=== PATIENT | male | born 1940 | race Hispanic/Latino ===

== ENCOUNTER 2018-07-19 06:51 | Inpatient (IN) | payer BC, MEDICARE ==
[2018-07-19 07:00] VITALS: BMI 33.0
--- NOTE | 2018-07-19 07:44 | ED PDOC ---
Arrival/HPI - History of Present Illness Narrative History of Present Illness (Text): 07/19/18 07:31 Pt is a 77 yo M with pmhx of HTN, HLD, hypothyroidism, CAD s/p stent, Ascending aortic aneurysm s/p repair, MVR s/p repair, s/p replacement who presents for chest pain. He states that his chest pain started yesterday afternoon at work and it was not too troublesome. He states that the chest pain was not initially worsened with exertion., and he took 3 advil before going to sleep. This AM at 4 he woke up with chest pain that worsened with deep inspiration, and had difficulty breathing 2/2 the chest pain. He states that now in the ED the chest pain is improving, and if he doesnt take a deep breath or lay flat the chest pain is not there. He states that the chest pain was a 8/10 and it was diffusely present through out his chest and wrapped around his back. He currently is denying any fevers, chills, light headedness, weakness, diaphoresis, coughing, wheezing, palpitations, pedal edema, nausea, vomiting, or abdominal pain. He does admit to pleuritic chest pain and SOB. PMHx: HTN, HLD, hypothyroidism, CAD s/p stent, Ascending aortic aneurysm s/p repair, MVR s/p repair, s/p replacement PSHx: thyroidectomy, Ascending aortic aneurysm s/p repair, MVR s/p repair, s/p replacement Meds: All: NKDA Social: Quit smoking 40 years ago, drinks a glass of bourbon daily - last drink was yesterday PM, denies illicit drug use Fam Hx: Dad - multiple ca. Mom- Breast ca w/ mets to bone PMD: Dr. Dick Aguilera Cardio: Dr. Connell <Chan Bates - Last Filed: 07/19/18 11:31> <Mayur Newberry - Last Filed: 07/19/18 11:33> - General Chief Complaint: Chest Pain Time Seen by Provider: 07/19/18 06:58 Past Medical History - Cardiac Hx Cardiac Disorders: Yes Hx Hypertension: Yes - Psychiatric Hx Substance Use: No - Surgical History Hx Cardiac Catheterization: Yes Hx Coronary Stent: Yes - Anesthesia Hx Anesthesia: Yes Hx Anesthesia Reactions: No Hx Malignant Hyperthermia: No <Chan Bates - Last Filed: 07/19/18 11:31> Family/Social History Family/Social History: Neoplasm/Cancer Smoking Status: Former Smoker Hx Alcohol Use: Yes Hx Substance Use: No <Chan Bates - Last Filed: 07/19/18 11:31> Allergies/Home Meds <Chan Bates - Last Filed: 07/19/18 11:31> <Mayur Newberry - Last Filed: 07/19/18 11:33> Allergies/Adverse Reactions: Allergies No Known Allergies Allergy (Verified 10/07/16 14:45) Home Medications: Home Meds Medication Instructions Recorded Confirmed Alprazolam [Xanax] 0.5 mg PO BID 10/07/16 07/19/18 Levothyroxine Sodium [Unithroid] 150 mcg PO DAILY 10/07/16 07/19/18 Metoprolol Tartrate [Lopressor] 50 mg PO BID 10/07/16 07/19/18 RX: Aspirin [[place] Aspirin] 81 mg PO DAILY 10/07/16 07/19/18 Ranitidine HCl [Acid Aircraft Worker 150] 150 mg PO DAILY 10/07/16 07/19/18 Atorvastatin [Lipitor] 10 mg PO DAILY 07/19/18 07/19/18 RX: Bupropion HCl [Bupropion HCl 150 mg PO DAILY 07/19/18 07/19/18 Sr] RX: Lisinopril [Zestril] 20 mg PO BID 07/19/18 07/19/18 RX: Nitroglycerin [Nitrostat] 0.4 mg TD PRN PRN 07/19/18 07/19/18 RX: Sertraline HCl [Zoloft] 25 mg PO TID 07/19/18 07/19/18 Review of Systems - Physician Review All systems were reviewed & negative as marked: Yes - Review of Systems Constitutional: absent: Fevers Respiratory: SOB. absent: Cough, Wheezing Cardiovascular: Chest Pain (diffusely present in the chest, wrapping around to back). absent: Palpitations, Edema, Syncope <Chan Bates - Last Filed: 07/19/18 11:31> Physical Exam Vital Signs Temp Pulse Resp BP Pulse Ox 07/19/18 07:15 98.1 F 72 16 129/73 93 L Temperature: Afebrile Blood Pressure: Normal Pulse: Regular Respiratory Rate: Normal Appearance: Positive for: Non-Toxic, Uncomfortable Pain Distress: Mild Mental Status: Positive for: Alert and Oriented X 3 - Systems Exam Head: Present: Atraumatic, Normocephalic Pupils: Present: PERRL Extroacular Muscles: Present: EOMI Respiratory/Chest: Present: Decreased Breath Sounds, Rales (present b/l worse on R than L). No: Good Air Exchange, Respiratory Distress, Accessory Muscle Use, Wheezes Cardiovascular: Present: Regular Rate and Rhythm, Murmurs (murmur present on the R sternal border likely 2/2 s/p replacement ). No: Irregular Rhythm, Tachycardic, Rub, Gallop Abdomen: Present: Normal Bowel Sounds. No: Tenderness, Distention, Peritoneal Signs, Rebound, Guarding Lower Extremity: Present: Normal Inspection, NORMAL PULSES. No: Edema, CALF TENDERNESS Neurological: Present: GCS=15, Speech Normal Skin: Present: Warm, Dry, Normal Color. No: Rashes Psychiatric: Present: Alert, Oriented x 3, Normal Insight, Normal Concentration <Chan Bates - Last Filed: 07/19/18 11:31> Vital Signs Temp Pulse Resp BP Pulse Ox 07/19/18 07:15 98.1 F 72 16 129/73 93 L <Mayur Newberry - Last Filed: 07/19/18 11:33> Medical Decision Making ED Course and Treatment: 07/19/18 07:48 Pt is a 77 yo M with pmhx detailed above who presented for chest pain, worse with inspiration that wrapped around the back. - CBC - CMP - BNP - VBG - CXR - D-Dimer - EKG - Trops - s/l nitro 07/19/18 09:40 Progress Note: Pt was re-assessed at bedside. He states that his chest pain is improving after the nitrates. 07/19/18 10:32 Progress Note: CT report was read and acknowledged. Pt was informed of reading about b/l PEs and heparin under the PE protocol was ordered. Pt will be placed in ICU for monitoring. - RAD Interpretation Radiology Orders: 07/19/18 07:22 CHEST PORTABLE [RAD] Stat - Medication Orders Current Medication Orders: Nitroglycerin (Nitrostat Sl Tab) 0.4 mg SL STAT STA Stop: 07/19/18 07:23 <Chan Bates - Last Filed: 07/19/18 11:31> ED Course and Treatment: 07/19/18 08:14 Carlos Nation is a 77 year old male who presents to the emergency department with a complaint of chest pain. In agreement with resident note, which includes further HPI details. Patient was seen and evaluated with resident, came up with plan and treatment together. 07/19/18 08:17 Seen and examined with the resident. Our history and physical exam reveals a gentleman complaining of chest pain and shortness of breath since yesterday. Known coronary artery disease with mitral valve repair and aortic valve replacement. Stents approximately 7 years ago. He has some mild rales on both bases. 07/19/18 10:59 Case discussed in detail with Dr. Tate, Dr. Jon, and Dr. Nirmala Aguilera. Dr. Aguilera accepts patient to his service. 07/19/18 11:24 EKG shows normal sinus rhythm rate approximately 70 with poor R waves and Q waves inferiorly and no acute ST or T-wave changes - Lab Interpretations Lab Results: 07/19/18 07:45 Lab Results 07/19/18 07:45: pO2 41, VBG pH 7.38, VBG pCO2 44.0, VBG HCO3 26.0, VBG Total CO2 27.4, VBG O2 Sat (Calc) 80.0 H, VBG Base Excess 0.5, VBG Potassium 6.2 H*, Sodium 134.0, Chloride 107.0, Glucose 100, Lactate 1.0, FiO2 21.0, Venous Blood Potassium 6.2 H* 07/19/18 07:45: PT 11.0, INR 0.96, APTT 31.4, D-Dimer, Quantitative Pending 07/19/18 07:45: WBC 8.1, RBC 4.21, Hgb 14.0, Hct 42.5, MCV 101.0, MCH 33.3, MCHC 32.9, RDW 12.7, Plt Count 141, MPV 11.1 H, Gran % 79.9 H, Lymph % (Auto) 8.5 L, [place] % (Auto) 9.9 H, Eos % (Auto) 1.5, Baso % (Auto) 0.2, Gran # 6.47, Lymph # (Auto) 0.7 L, [place] # (Auto) 0.8 H, Eos # (Auto) 0.1, Baso # (Auto) 0.02 - RAD Interpretation Radiology Orders: 07/19/18 07:22 CHEST PORTABLE [RAD] Stat - Medication Orders Current Medication Orders: Discontinued Medications Nitroglycerin (Nitrostat Sl Tab) 0.4 mg SL STAT STA Stop: 07/19/18 07:23 Last Admin: 07/19/18 07:37 Dose: 0.4 mg <Mayur Newberry - Last Filed: 07/19/18 11:33> - Scribe Statement The provider has reviewed the documentation as recorded by the Vicenteibannie Herrera Provider Scribe Attestation: All medical record entries made by the Scribe were at my direction and personally dictated by me. I have reviewed the chart and agree that the record accurately reflects my personal performance of the history, physical exam, medical decision making, and the department course for this patient. I have also personally directed, reviewed, and agree with the discharge instructions and disposition. <Mayur Newberry - Last Filed: 07/19/18 11:33> Disposition/Present on Arrival - Present on Arrival History of DVT/PE: No History of Uncontrolled Diabetes: No Urinary Catheter: No History of Decub. Ulcer: No History Surgical Site Infection Following: None <Chan Bates - Last Filed: 07/19/18 11:31> - Present on Arrival Any Indicators Present on Arrival: No History of DVT/PE: No History of Uncontrolled Diabetes: No Urinary Catheter: No History of Decub. Ulcer: No - Disposition Have Diagnosis and Disposition been Completed?: Yes Disposition Time: 10:20 Patient Plan: Admission, ICU <Mayur Newberry - Last Filed: 07/19/18 11:33> - Disposition Diagnosis: Pulmonary embolus Disposition: HOSPITALIZED Patient Problems: Current Active Problems Problem Status Onset Pulmonary embolus Acute Condition: SERIOUS Referrals: Kodi Aguilera MD [Primary Care Provider] - Follow up with primary Forms: [employer] ([place])
[2018-07-19 08:02] LABS: BASO # 0.02 K/mm3 (0.0-2.0); BASO % 0.2 % (0.0-3.0); EOS # 0.1 (0.0-0.7); EOS % 1.5 % (1.5-5.0); GRAN # 6.47 (1.4-6.5); GRAN % 79.9 % (50.0-68.0); LYMPH # 0.7 (1.2-3.4); LYMPH % 8.5 % (22.0-35.0); MEAN CORPUSCULAR HEMOGLOBIN 33.3 pg (25.0-35.0); MEAN CORPUSCULAR HGB CONC 32.9 g/dl (31.0-37.0); MEAN PLATELET VOLUME 11.1 fl (7.0-11.0); MONO # 0.8 (0.1-0.6); MONO % 9.9 % (1.0-6.0); RBC 4.21 10^6/uL (3.5-6.1); RED CELL DISTRIBUTION WIDTH 12.7 % (11.5-14.5); WHITE BLOOD COUNT 8.1 10^3/ul (4.5-11.0)
[2018-07-19 08:07] LABS: INR 0.96; PARTIAL THROMBOPLASTIN TIME 31.4 Seconds (25.1-36.5)
[2018-07-19 08:09] LABS: VENOUS BLOOD GAS BASE EXCESS 0.5 mmol/L (0.0-2.0); VENOUS BLOOD GAS PO2 41 mm/Hg (30-55); VENOUS BLOOD PH 7.38 (7.32-7.43)
[2018-07-19 08:40] LABS: ALB/GLOB RATIO 1.2 (1.1-1.8); ALBUMIN 3.6 g/dL (3.0-4.8); ALT/SGPT 21 U/L (7-56); AST/SGOT 19 U/L (17-59); BLOOD UREA NITROGEN 17 mg/dL (7-21); CALCIUM 9.5 mg/dL (8.4-10.5); GFR NON-AFRICAN AMERICAN > 60
[2018-07-19 08:51] LABS: B-TYPE NATRIURETIC PEPTIDE 724 pg/mL (0-450); TROPONIN I < 0.01 ng/mL
[2018-07-19] MEDS ORDERED: Iohexol 350 MG/100 ML VIAL ONE (09:06)
--- NOTE | 2018-07-19 10:23 | CT ---
Date of service: 07/19/2018 PROCEDURE: CT Chest with contrast (Pulmonary Angiogram) HISTORY: SOB and elevated D dimer COMPARISON: None available. TECHNIQUE: Axial computed tomography images were obtained of the chest in the pulmonary arterial phase of enhancement. Coronal and sagittal reformatted images were created and reviewed. Intravenous contrast dose: Mean Hounsfield value in the main pulmonary artery: 269.50 Radiation dose: Total exam DLP = mGy-cm. This CT exam was performed using one or more of the following dose reduction techniques: Automated exposure control, adjustment of the mA and/or kV according to patient size, and/or use of iterative reconstruction technique. FINDINGS: PULMONARY ARTERIES: Dilated main pulmonary artery 4.0 cm consistent with pulmonary arterial hypertension. Pulmonary emboli identified including proximal and segmental branches of right lower lobe pulmonary arteries. Additional thrombus visible in left upper lobe pulmonary arteries. AORTA: No acute findings. No thoracic aortic aneurysm. LUNGS: Atelectatic changes at the lung bases. PLEURAL SPACES: Trace bilateral pleural effusions. HEART: Unremarkable. No cardiomegaly. No significant pericardial effusion. LYMPH NODES: No lymphadenopathy. BONES, CHEST WALL: Unremarkable. No fracture or destructive lesion OTHER FINDINGS: Enlargement of the left lobe of the thyroid extending into the superior mediastinum. Elective thyroid ultrasound recommended. IMPRESSION: Pulmonary embolism, acute primarily affecting right lower lobe. Additional thrombi identified subsegmental branches of the left upper lobe. Lower lobe infiltrates and trace pleural effusions. No visible evidence of pulmonary infarction. Additional benign and/or incidental findings described above. Critical values protocol: Study completed 09:22 Radiologist notified 10:08 Results conveyed verbally at 10:18. I discussed findings directly with the attending physician in the emergency department Dr. Eatsman. Interpretation finalized and available for review 10:July 19, 2018.
[2018-07-19] MEDS: Heparin25000 units/250ml 1/2NS 25,000 UNITS/250 ML BAG IV PRN (10:46)
[2018-07-19] MEDS ORDERED: Albuterol-Ipratrop 3 mg / 0.5 (3 ml) UD IH PRN (13:16)
--- NOTE | 2018-07-19 13:34 | RAD ---
Date of service: 07/19/2018 HISTORY: Chest pain. COMPARISON: July 19, 2018. CT pulmonary angiogram. FINDINGS: LUNGS: Low lung volumes, lower lobe infiltrates. PLEURA: No significant pleural effusion identified, no pneumothorax apparent. CARDIOVASCULAR: Cardiomegaly. No evidence of acute, significant cardiovascular disease. OSSEOUS STRUCTURES: No significant abnormalities. VISUALIZED UPPER ABDOMEN: Normal. OTHER FINDINGS: None. IMPRESSION: Atelectasis/infiltrates at the lung bases, findings better seen on CT pulmonary angiogram concurrent with this study.
[2018-07-19] MEDS: cefTRIAXone 1 gm 1 GM/100 ML BAG IVPB SCH (14:12)
--- NOTE | 2018-07-19 14:23 | HP ---
HISTORY OF PRESENT ILLNESS: The patient is a 77-year-old male who presents to the emergency room after experiencing chest pain yesterday and episode of chest pain through the night. He also has difficulty breathing. He says the chest pain gets worse with taking a deep breath. The pain radiated around the chest to the back. He denies any fever, chills, shakes. Onset was rather sudden while at work yesterday. PAST MEDICAL HISTORY: The patient is known to have a past medical history positive for hypertension, hypothyroidism, coronary artery disease status post stent placement and status post repair of an ascending aortic aneurysm, mitral regurg and aortic stenosis. The patient is status post thyroidectomy. ALLERGIES: HE HAS NO KNOWN MEDICAL ALLERGIES. SOCIAL HISTORY: He has not smoked for 40 years. Drinks one glass of Riley a day. MEDICATIONS: Include alprazolam 0.5 mg twice a day, aspirin 81 mg once a day, Synthroid 150 mcg daily, metoprolol tartrate 50 mg twice a day, ranitidine 150 mg daily, Lipitor 10 mg daily, bupropion 150 mg daily, lisinopril 20 mg twice a day, Nitrostat 0.4 mg as needed and Zoloft 25 mg three times a day. REVIEW OF SYSTEMS: Otherwise negative. PHYSICAL EXAMINATION: VITAL SIGNS: His blood pressure is 129/73, heart rate is 72. He is afebrile at 98.1 degrees Fahrenheit. LUNGS: On pulmonary auscultation, his lung sounds are decreased. There are bilateral rales at the bases noted. HEART: Regular. There is systolic murmur appreciated. ABDOMEN: Soft and nontender. EXTREMITIES: Free of cyanosis, clubbing or edema. NEUROLOGICAL: The patient is awake, alert and oriented with no focal neurological signs. LABORATORY DATA AND IMAGING: Shows a white blood cell count to be 8.1, hemoglobin and hematocrit are 14 and 42.5 respectively, platelet count is 141. The chest x-ray was performed. The patient underwent CT angio of the chest which showed pulmonary embolism acute primary affecting the right lower lobe. Additional thrombi were identified. Subsegmental branches of the left upper lobe. There were some lower lobe infiltrates and trace pleural effusions. So, the patient is admitted to the Intensive Care Unit with bilateral pulmonary emboli. He was started on heparin. The patient will be evaluated closely. Consultation from the primer powder blender wet, Dr. Tate is requested. Markell Aguilera MD [facility] # [id number]
[2018-07-19] MEDS ORDERED: Pneumococcal 23-Valent Vaccine IM ONE (15:41)
[2018-07-19] MEDS ORDERED: Influenza Vaccine 60 mcg/0.5 mL SYR (4YR UP) IM ONE (15:41)
--- NOTE | 2018-07-19 16:21 | CON ---
DATE: 07/19/2018 [facility] CONSULT LOCATION: At [facility]. REQUESTING PHYSICIAN: Kodi Aguilera MD. CHIEF COMPLAINT: The patient presents with chest pain and shortness of breath. HISTORY OF PRESENT ILLNESS: Mr. Nation, he is a 77-year-old male with a history of hypertension; hyperlipidemia; hypothyroidism; coronary artery disease, status post stent; ascending aortic aneurysm repair and mitral valve repair and aortic stenosis valve replacement. 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 The patient states that this morning, he developed chest pain that increased on exertion. He stated that he had taken several Advil before going to sleep but was wakened last night with chest pain and shortness of breath. He had no fever, chills. No nausea or vomiting. No abdominal pain. No cough or congestion. The patient has been admitted to the intensive care unit and is on IV heparin at this time for pulmonary embolus. PAST MEDICAL HISTORY: Significant for the coronary artery disease and stent, the mitral valve as well as the aortic valve surgery and the ascending aortic aneurysm repair. The patient has hypothyroidism and a goiter as well as hypertension. ALLERGIES: HE HAS NO KNOWN ALLERGIES. MEDICATIONS: His current medications can be evaluated as per the nurse's intake form. SOCIAL HISTORY: He is a smoker that stopped about 40 years ago. Does have social drinking, but no illicit drug use. FAMILY HISTORY: Noncontributory. REVIEW OF SYSTEMS: Note that constitutional all negative. HEENT: All negative. Respiratory: The patient presented with some shortness of breath. Cardiovascular: He had the chest pain. Gastrointestinal: All negative. : All negative. Musculoskeletal: All negative. Neuropsychiatric: All negative. Hematologic: All negative. Immunologic: All negative. Integrity: All negative. PHYSICAL EXAMINATION: VITAL SIGNS: Physical exam note that his temperature is 98.1, his pulse is 72, respirations of 16 and BP is 129/73. SKIN: Warm and dry. HEENT: Head atraumatic, normocephalic. Eyes reactive to light. Ears, nose and throat seemed to be within normal limits. NECK: Supple. No JVD. No thyroid enlargement. No lymph nodes. HEART: Has a regular rate and rhythm. Normal S1 and S2. LUNGS: Reveal good breath sounds apically, but there are some decreased breath sounds at the bases. ABDOMEN: Soft, nontender, decreased bowel sounds. GENITALIA AND RECTAL: Deferred. MUSCULOSKELETAL: No joint deformities. EXTREMITIES: Reveal no significant edema. NEUROLOGICAL: He is grossly intact. LABORATORY DATA: As far as his laboratories, his white count is 8.1, hemoglobin is 14, hematocrit 42.5 with platelets of 141,000. Venous blood gas reveals a pH of 7.38, pCO2 of 44, pO2 of 41. His sodium is 137, potassium 4.4, chloride 107, CO2 of 23 with a BUN of 17, creatinine of 1 and a glucose of 104. As far as his CT scan of the chest, it reveals that there was a pulmonary embolus, acute primary affecting the right lower lobe. Additional thrombi identified with subsegmental branches in the left upper lobe. There is a lower lobe infiltrate and trace pleural effusions. No evidence of pulmonary infarct. IMPRESSION: As far as my impression, this patient has pulmonary embolus in the right lower lobe and the left upper lobe. He also has lower lobe infiltrates and pleural effusions. Must rule out pneumonia. The patient has history of ascending aortic aneurysm and repair. He has mitral valve as well as aortic valve surgery in the past as well. He has a history of coronary artery disease with stents, hypothyroidism and had history of thyroid cancer and thyroidectomy approximately 20 years ago. It is noted on the CAT scan that there is an enlargement of the left lobe of the thyroid extending into the superior mediastinum. The patient has a history of hypertension and hyperlipidemia. PLAN: As far as our plan, I will order Dopplers of the lower extremity. The patient will be followed with chest x-ray. He has had consults with Cardiology as well as Pulmonary and he is getting heparin IV and we will follow PT/INR and PTT closely. The patient will be on bronchodilators p.r.n. and Protonix as well as Rocephin, Zofran and Tylenol for pain. We will continue to treat aggressively along with the other consultants and the primary care doctor. Terry Jon MD
[2018-07-20] MEDS: Heparin25000 units/250ml 1/2NS 25,000 UNITS/250 ML BAG IV PRN (01:50)
[2018-07-20] MEDS: Pantoprazole 20 mg EC Tab PO SCH (06:30)
[2018-07-20 06:52] LABS: INR 1.12; PROTHROMBIN TIME 12.9 SECONDS (9.4-12.5)
[2018-07-20 06:52] LABS: BASO # 0.02 K/mm3 (0.0-2.0); BASO % 0.3 % (0.0-3.0); EOS % 0.5 % (1.5-5.0); GRAN # 5.94 (1.4-6.5); HEMOGLOBIN 14.3 g/dL (14.0-18.0); LYMPH # 0.8 (1.2-3.4); LYMPH % 10.9 % (22.0-35.0); MEAN PLATELET VOLUME 11.4 fl (7.0-11.0); MONO # 0.9 (0.1-0.6); MONO % 11.3 % (1.0-6.0); RBC 4.21 10^6/uL (3.5-6.1); RED CELL DISTRIBUTION WIDTH 12.6 % (11.5-14.5); WHITE BLOOD COUNT 7.7 10^3/ul (4.5-11.0)
[2018-07-20 07:15] LABS: ALB/GLOB RATIO 1.2 (1.1-1.8); ALBUMIN 3.5 g/dL (3.0-4.8); ALT/SGPT 25 U/L (7-56); AST/SGOT 18 U/L (17-59); BLOOD UREA NITROGEN 17 mg/dL (7-21); GFR NON-AFRICAN AMERICAN > 60
--- NOTE | 2018-07-20 08:51 | CARD ---
APPROVED REPORT Date of service: 07/19/2018 EKG Measurement Heart [id number] <Conclusion> Normal sinus rhythm RVCD Inferior infarct, age undetermined NSSTW changes
--- NOTE | 2018-07-20 09:43 | CON ---
DATE: 07/20/2018 PULMONARY CONSULTATION REASON FOR CONSULTATION: Pulmonary embolism. REFERRING PHYSICIAN: Kodi Aguilera MD. HISTORY OF PRESENT ILLNESS: The patient is a 77-year-old male, with past medical history significant for coronary artery disease, status post cardiac stent, status post mitral valve repair, status post aortic valve repair, status post ascending aortic aneurysm repair, who presented to [facility] with a 1-day history of increasing shortness of breath at rest, dyspnea on exertion, and chest pain. There is no history of cough or sputum production. As above, the patient did present with chest pain - made worse with deep respirations. There is no history of hemoptysis.. There is no history of temperatures, chills, or infectious exposure. There is no history of night sweats, weight loss, or appetite change prior to the above events. No history of leg or calf pains. No history of syncope or diaphoresis. No history of recent travel or trauma. REVIEW OF SYSTEMS: No history of nausea, vomiting, or diarrhea. No acute urinary symptoms. No new neurologic complaints. Rest of the review of systems negative. ALLERGIES: NO KNOWN ALLERGIES. SOCIAL HISTORY: Positive for former tobacco usage. No alcohol. FAMILY HISTORY: No inheritable diseases. HOME MEDICATIONS: Include Zoloft, Nitrostat, Lopressor, Unithroid, Lipitor, aspirin, and Xanax. PHYSICAL EXAMINATION: GENERAL: The patient does appear comfortable this morning. He is not short of breath at rest. VITAL SIGNS: Temperature is 98.5, pulse is 88, respirations 20, blood pressure 144/91. Oxygen saturation on nasal cannula is 96%. HEENT: Normocephalic, atraumatic. No JVD. CARDIOVASCULAR: Systolic ejection murmur at the lower left sternal border. No S3 gallop. LUNGS: Decreased breath sounds at the bases. No rhonchi. No wheezing. EXTREMITIES: Mild edema is present in both lower extremities. There is no cyanosis or clubbing. The calves are nontender to palpation. GASTROINTESTINAL: Abdomen is soft, nontender, and nondistended. Bowel sounds are positive. SKIN: No acute rash. NEUROLOGIC: Limited at the present time. PERTINENT LABORATORY DATA: CAT scan of the chest was done yesterday as an angiogram protocol. There is a pulmonary embolism noted primarily affecting the right lower lobe and its branches. There are additional smaller thrombi noted in the left upper lobe branches. There are trace bilateral pleural effusions. There are minimal infiltrates at both bases consistent with atelectasis. Complete metabolic profile: Phosphorus 2.2, bilirubin 1.6. B-type natriuretic peptide 724. Rest of the metabolic profile is within normal limits. CBC: White count 8.1K, hemoglobin 14, hematocrit 42.5, platelets of 141,000 IMPRESSION: 1. Bilateral pulmonary emboli. 2. Shortness of breath,chest pain - resolving. 3. Coronary artery disease. 4. Valvular heart disease. PLAN: I did discuss the case with the night nurse at length. I have also reviewed the chart at length, and discussed the case with the patient at length. The patient presents to [facility] with a 1-day history of increasing shortness of breath at rest, dyspnea on exertion, and chest pain. He offers no other pulmonary symptoms. I did review the CAT scan of the chest - done as an angiogram protocol. As above, the main pulmonary emboli involve the right lower lobe. There are smaller emboli noted in the left upper lobe. As above, there are also minimal pleural effusions with minimal bibasilar atelectasis. On physical exam, there is no bronchospasm noted. In addition, the alveolar-arterial gradient is now decreasing. Oxygen saturation on nasal cannula is 96% this morning. Doppler ultrasound of the legs has been done - but there are no results in the chart at this point in time. I would also suggest an echocardiogram - to evaluate the right ventricular systolic pressure. Repeat a.m. labs are pending. The patient does state to feeling much, much better this morning, and is clinically improved. Again, he is hemodynamically stable, with no significant alveolar-arterial gradient. The patient is currently on the heparin protocol and I would continue with that for now. An oral agent can be added in the next 24-48 hours. I will discuss the above with the entire ICU team in the next few moments. I will also discuss the above with the attending physician. Thank you very much for this pulmonary consultation. Bruno Tate MD [facility] # [id number] JAUN
--- NOTE | 2018-07-20 10:02 | PN ---
DATE: 07/20/2018 INTELLIGENCE CLERK NOTE SUBJECTIVE: The patient is resting in bed, very comfortable. O2 via nasal cannula. Continues to have IV heparin and being followed closely with the PTT. The patient has no increased shortness of breath. No cough, wheezing or chest congestion. PHYSICAL EXAMINATION: VITAL SIGNS: Note that his temperature is 98.5, pulse is 93, respirations of 22 and BP is 144/91, O2 saturation is 96%. HEENT: Head is atraumatic, normocephalic. Eyes reactive to light. Ears, nose and throat seemed to be within normal limits. NECK: Supple. No JVD. No thyroid enlargement. No lymph nodes. HEART: Has regular rate and rhythm. Normal S1, S2. LUNGS: Reveal decreased breath sounds at the bases with occasional rhonchi at the left base. ABDOMEN: Soft, nontender. Normal bowel sounds. No organomegaly noted. GENITALIA: Deferred. RECTAL: Deferred. MUSCULOSKELETAL: No joint deformities. EXTREMITIES: Reveal trace lower extremity edema. NEUROLOGICAL: He seemed to be grossly intact. DATA: As far as his laboratories are concerned, the patient's white count is 7.7, hemoglobin is 14.3, hematocrit 42.1 with platelets of 151,000. Sodium is 136, potassium 4.2, chloride 105, CO2 of 24 with a BUN of 17, creatinine of 1.1 and a glucose of 97. As far as chest x-ray is concerned, the patient continues to have a left lower lobe infiltrative process. This is an unofficial reading. IMPRESSION: Patient has pulmonary embolus in the right lower lobe and the left upper lobe. Also, there is left lower lobe pneumonia with a small pleural effusion. The patient has a history of ascending aortic aneurysm repair, mitral valve as well as aortic valve repair and a history of coronary artery disease with stents. He has hypothyroidism and a history of thyroid cancer and thyroidectomy approximately 20 years ago, but noted on CAT scan, there is an enlarged left lobe of the thyroid extending into the superior mediastinum. The patient has a history of hypertension as well as hyperlipidemia. PLAN: As far as our plan, we will continue with IV heparin and bronchodilators of Protonix, Rocephin, Zofran and Tylenol p.r.n. The patient is being followed by Cardiology as well as Pulmonary. We will also get daily chest x-rays. Terry Jon MD [facility] # [id number]
[2018-07-20] MEDS: cefTRIAXone 1 gm 1 GM/100 ML BAG IVPB SCH (10:26)
--- NOTE | 2018-07-20 10:34 | RAD ---
Date of service: 07/20/2018 HISTORY: f/u COMPARISON: July 19, 2018. FINDINGS: LUNGS: Stable left lower lobe infiltrate. PLEURA: Stable left pleural effusion. CARDIOVASCULAR: Stable cardiomegaly. OSSEOUS STRUCTURES: No significant abnormalities. VISUALIZED UPPER ABDOMEN: Normal. OTHER FINDINGS: None. IMPRESSION: Stable left lower lobe infiltrate is visualized. No new/acute or interval changes.
--- NOTE | 2018-07-20 16:12 | US ---
HISTORY: Leg pain and swelling. Evaluate for DVT PHYSICIAN(S): Jordan Arredondo MD. TECHNIQUE: Duplex sonography and color-flow Doppler with graded compression were used to evaluate the deep venous systems of both lower extremities. FINDINGS: The visualized deep venous systems of both lower extremities are sonographically normal and compressible. Normal wave forms and augmentation are seen. There is no sonographic evidence for deep venous thrombosis in the visualized segments of both lower extremities. IMPRESSION: No sonographic evidence for deep venous thrombosis in the visualized segments of both lower extremities.
--- NOTE | 2018-07-20 16:32 | CON ---
DATE: 07/20/2018 HISTORY OF PRESENT ILLNESS: This is a 77-year-old man known to me, admitted with chest pain beginning Saturday evening. This was relatively mild. He took some Advil. He went to sleep. Saturday morning, he woke up with severe chest and back pain and shortness of breath which was pleuritic. He came to the Emergency Room. The evaluation demonstrated multiple pulmonary emboli on the CT scan of the chest. He was started on heparin. He is currently in the Intensive Care Unit lying in bed comfortably. There are no symptoms at this time. He states that his breathing is much better. There is no chest pain. There was no orthopnea, PND, syncope, presyncope, lightheadedness, dizziness, vertigo, palpitation, edema, claudication, fever, chills, rigors, sweats, hemoptysis, abdominal pain, nausea, vomiting, diarrhea, constipation, or melena. PAST MEDICAL HISTORY: Notable for coronary artery disease with remote myocardial infarction and remote coronary stent. He has a history of aortic aneurysm, which was repaired with aortic valve replacement and mitral valve repair. He has a history of hypertension, hypothyroidism, thyroidectomy, hyperlipidemia. He is a remote smoker. There is no history of rheumatic fever, congestive heart failure, arrhythmia, diabetes, stroke, TIA, or gout. MEDICATIONS: At the time of admission, include Zantac, bupropion, Lipitor, metoprolol, aspirin, thyroid replacement, lisinopril, Zoloft, and Xanax p.r.n. SOCIAL HISTORY: He is a former smoker. He drinks a glass of [place] daily. He is ambulatory. FAMILY HISTORY: Notable for cancer. REVIEW OF SYSTEMS: A 10-point review of systems otherwise unremarkable except as noted above. PHYSICAL EXAMINATION: GENERAL: He is a well-developed male lying in bed in the Intensive Care Unit, in no acute distress. VITAL SIGNS: Notable for sinus rhythm in the 90s, afebrile, 144/91, respirations 19-23, O2 sat 94%-98% on nasal cannula. HEENT: Reveals no neck vein distention, thyromegaly, or carotid bruit. Mucous membranes moist. Conjunctivae pink. NECK: Supple. LUNGS: Lung luna clear. HEART: Revealed normal first and second heart sounds. Soft systolic murmur along the left sternal border. ABDOMEN: Soft. Bowel sounds present. No mass, organomegaly, tenderness, rebound, or guarding. No CVA tenderness. No palpable abdominal aortic aneurysm. EXTREMITIES: Revealed no cyanosis, clubbing, or edema. NEUROLOGIC: He is awake, alert, and oriented. PSYCHIATRIC: Normal as to mood and affect. SKIN: Warm and dry. No rash or cellulitis. LABORATORY AND IMAGING: The EKG demonstrates regular sinus rhythm, nonspecific ST wave changes. The chest x-ray reveals atelectasis in the lung bases. CT scan of the chest reveals pulmonary emboli as described affecting the right upper lobe with additional thrombi identified in seven segmental branches of the left upper lobe, lower lobe infiltrates, and trace pleural effusions, etc. See report. The lower extremity venous Doppler study is pending. CBC is unremarkable. PT, INR, PTT unremarkable initially. D-dimer was 1091. Today's PTT is 85.6, on heparin. Blood gases are noted. Electrolytes: BUN, creatinine, blood sugar unremarkable. Magnesium 1.9, total bilirubin 1.6. LFTs unremarkable. Troponin less than 0.01. IMPRESSION: Carlos Nation is 77-year-old man with coronary artery disease, remote myocardial infarction, and coronary stent with an ascending aortic aneurysm, which was repaired with aortic valve replacement and mitral valve repair, who was admitted with sudden onset of severe chest and back pain and found to have acute pulmonary emboli-source unknown. His symptoms have improved with treatment. He is on IV heparin with therapeutic levels. I agree with current plans. He is in the Intensive Care Unit. He is getting IV heparin. The lower extremity venous Doppler study is pending. Pulmonary consultation is pending. I would continue his cardiac medications including aspirin, Lipitor, metoprolol, lisinopril. I will review his old records. I will order an echocardiogram. We will check stool for occult blood. Monitor I's and O's, PTTs, and daily labs while he is acutely ill. 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 I will follow along with you. I will make additional recommendations based on his clinical course. Will Brown MD [facility] # [id number] JAUN
[2018-07-21] MEDS: Pantoprazole 20 mg EC Tab PO SCH (06:00)
[2018-07-21 07:17] LABS: BASO # 0.01 K/mm3 (0.0-2.0); BASO % 0.1 % (0.0-3.0); EOS # 0.1 (0.0-0.7); EOS % 1.3 % (1.5-5.0); GRAN # 6.89 (1.4-6.5); GRAN % 77.2 % (50.0-68.0); HEMOGLOBIN 15.1 g/dL (14.0-18.0); LYMPH % 10.9 % (22.0-35.0); MEAN CELL VOLUME 99.6 fl (80.0-105.0); MEAN CORPUSCULAR HEMOGLOBIN 33.4 pg (25.0-35.0); MEAN CORPUSCULAR HGB CONC 33.6 g/dl (31.0-37.0); MEAN PLATELET VOLUME 11.1 fl (7.0-11.0); MONO # 0.9 (0.1-0.6); MONO % 10.5 % (1.0-6.0); RBC 4.52 10^6/uL (3.5-6.1); RED CELL DISTRIBUTION WIDTH 12.7 % (11.5-14.5); WHITE BLOOD COUNT 8.9 10^3/ul (4.5-11.0)
--- NOTE | 2018-07-21 07:40 | PN ---
DATE: 07/21/2018(630am-720am) PULMONARY NOTE DICTATION SUBJECTIVE: The patient appears comfortable this morning. He is not short of breath at rest. He has no chest pain. PHYSICAL EXAMINATION: VITAL SIGNS: Temperature is 98.4, pulse 89, respirations 18, blood pressure 136/90. Oxygen saturation on nasal cannula is 97%. HEENT: Normocephalic, atraumatic. No JVD. CARDIOVASCULAR: Systolic ejection murmur at the lower left sternal border. No S3 gallop. LUNGS: Decreased breath sounds at the bases. No rhonchi. No wheezing. EXTREMITIES: Mild edema is noted in both lower extremities. There is no cyanosis or clubbing. Calves are nontender to palpation. GI: Abdomen is soft, nontender, nondistended. Bowel sounds are positive. SKIN: No acute rash. NEUROLOGIC: Exam limited at the present time. PERTINENT LABORATORY DATA: Doppler ultrasound was done of the lower extremities. There is no evidence for deep venous thrombosis. CBC: White count 7.7K, hemoglobin 14.3, hematocrit 42.1, platelets of 151,000. IMPRESSION: 1. Bilateral pulmonary emboli. 2. Shortness of breath,chest pain - resolving. 3. Coronary artery disease. 4. Valvular heart disease. PLAN: The patient appears very comfortable this morning. He is not short of breath at rest. He has no chest pain. He does state to feeling much better overall. I did discuss the case with the night nurse at length. The night nurse stated that the patient had a very good night. The patient remains on the heparin protocol. He is hemodynamically stable with no significant alveolar-arterial gradient. I did order an echocardiogram yesterday - hopefully it will be done today. Clinical status of the patient is significantly improved - compared to the initial presentation. I did speak with the residents earlier this morning - in reference to possibly changing the patient to an oral agent. I will discuss the above with the entire ICU team in the next few moments. I will also discuss the above with the attending physician. Bruno Tate MD JAUN
[2018-07-21 07:48] LABS: ALB/GLOB RATIO 1.1 (1.1-1.8); ALBUMIN 3.8 g/dL (3.0-4.8); ALT/SGPT 18 U/L (7-56); AST/SGOT 17 U/L (17-59); BLOOD UREA NITROGEN 17 mg/dL (7-21); CALCIUM 9.7 mg/dL (8.4-10.5); GFR NON-AFRICAN AMERICAN > 60
[2018-07-21] MEDS: Levothyroxine 150 MCG TAB PO SCH (07:54)
--- NOTE | 2018-07-21 08:09 | CP.PCM.PN ---
Subjective - Date & Time of Evaluation Date of Evaluation: 07/21/18 Time of Evaluation: 07:00 - Subjective Subjective: Stable in the ICU. He feels OK. No CP or SOB. V/S noted. RSR. PE: Lungs: clear Cor.: S1S2 Abd.: soft Ext.: no edema Neuro.: alert I/O= 940/1020 Labs noted: PTT = 68.7, Trops X2 Neg Lower Ext. Ramirez Dopplers: No DVT Objective - Vital Signs/Intake and Output Vital Signs (last 24 hours): Temp Pulse Resp BP Pulse Ox 99 F 89 19 136/90 97 07/21/18 04:00 07/21/18 01:51 07/20/18 11:00 07/20/18 17:19 07/20/18 11:00 Intake and Output: 07/21/18 07/21/18 06:59 18:59 Intake Total 320 Output Total 600 Balance -280 - Medications Medications: Current Medications Albuterol/Ipratropium (Duoneb 3 Mg/0.5 Mg (3 Ml) Ud) 3 ml IH [id number] PRN PRN Reason: Shortness of Breath Alprazolam (Xanax) 0.5 mg PO BID PRN; Protocol PRN Reason: Anxiety Last Admin: 07/20/18 01:04 Dose: 0.5 mg Aspirin (Aspirin Chewable) 81 mg PO DAILY TIFFANY Last Admin: 07/20/18 10:26 Dose: 81 mg Atorvastatin Calcium (Lipitor) 10 mg PO DIN TIFFANY Last Admin: 07/20/18 17:19 Dose: 10 mg Heparin Sodium/Sodium Chloride (Heparin 71653 Units/250ml 1/2 Normal Saline) 25,000 units in 250 mls @ 18.779 mls/hr IV .[id number] PRN; Protocol PRN Reason: ADJUST RATE PER PROTOCOL Last Titration: 07/20/18 06:00 Dose: 10 units/kg/hr, 10.433 mls/hr Ceftriaxone Sodium (Rocephin 1 Gram Ivpb) 1 gm in 100 mls @ 100 mls/hr IVPB DAILY TIFFANY; Protocol Last Admin: 07/20/18 10:26 Dose: 100 mls/hr Ibuprofen (Motrin Tab) 600 mg PO Q6H PRN PRN Reason: Pain, moderate (4-7) Last Admin: 07/20/18 01:04 Dose: 600 mg Levothyroxine Sodium (Synthroid) 150 mcg PO 0600 [facility] Last Admin: 07/21/18 07:54 Dose: 150 mcg Lisinopril (Zestril) 20 mg PO DAILY [facility] Last Admin: 07/20/18 10:26 Dose: 20 mg Metoprolol Tartrate (Lopressor) 50 mg PO BID [facility] Last Admin: 07/20/18 17:19 Dose: 50 mg Ondansetron HCl (Zofran Tab) 4 mg PO Q8H PRN PRN Reason: Nausea/Vomiting Pantoprazole Sodium (Protonix Ec Tab) 20 mg PO 0600 [facility] Last Admin: 07/21/18 06:00 Dose: 20 mg - Labs Labs: 07/21/18 06:18 07/21/18 06:18 PT 12.9 SECONDS (9.4-12.5) H 07/20/18 05:00 INR 1.12 07/20/18 05:00 APTT 68.7 Seconds (25.1-36.5) H 07/21/18 06:18 Assessment and Plan - Assessment and Plan (Free Text) Assessment: Acute Chest and Back Pain Acute PEs CAD/UT/Remote PCI S/P repair ascending aortic aneurysm with AVR and MV repair. HBP HLD Hypothyroidism, s/p thyroidectomy for cancer Former Smoker Plan: As per Intensivists, Drs. Aguilera and Pulmonary Check Echo IV heparin > Oral agent as per Dr. Lea MITCHELL to chair as bernice.
[2018-07-21] MEDS: cefTRIAXone 1 gm 1 GM/100 ML BAG IVPB SCH (09:55)
--- NOTE | 2018-07-21 10:59 | CARD ---
APPROVED REPORT Date of service: 07/21/2018 EKG Measurement Heart [id number] <Conclusion> Normal sinus rhythm Possible Left atrial enlargement Inferior infarct, age undetermined Abnormal ECG
--- NOTE | 2018-07-21 16:46 | CP.CCUPN ---
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 - ICU Progress Note Patient seen and examined this morning No acute events overnight No complaints voiced by patients at bedside Denies chest pain, cough, sob, 12 system ROS negative at this time CCU Objective - Vital Signs / Intake & Output Vital Signs (Last 4 hours): Vital Signs Pulse Resp BP Pulse Ox 07/21/18 15:00 81 23 130/79 94 L 07/21/18 14:00 82 26 H 138/79 95 07/21/18 13:56 84 07/21/18 13:00 82 23 127/76 93 L Intake and Output (Last 8hrs): Intake & Output 07/21/18 07/21/18 07/21/18 06:59 14:59 22:59 Intake Total 320 Output Total 600 Balance -280 Weight 101.605 kg Intake: IV 120 heparin 120 Oral 200 Output: Urine 600 Urine, Voided 600 Other: # Bowel Movements 0 - Physical Exam Head: Positive for: Atraumatic, Normocephalic Pupils: Positive for: PERRL Extroacular Muscles: Positive for: EOMI Respiratory/Chest: Positive for: Rales (RLL, LLL ). Negative for: Respiratory Distress, Accessory Muscle Use, Wheezes Cardiovascular: Positive for: Regular Rate and Rhythm, Murmurs (Systolic grade 4 located at aortic post as well as along LSB ). Negative for: Irregular Rhythm, Tachycardic, Rub, Gallop Abdomen: Positive for: Normal Bowel Sounds. Negative for: Tenderness, Distention, Peritoneal Signs, Rebound, Guarding Lower Extremity: Positive for: Normal Inspection, NORMAL PULSES. Negative for: Edema, CALF TENDERNESS Neurological: Positive for: GCS=15, Speech Normal Skin: Positive for: Warm, Dry, Normal Color. Negative for: Rashes Psychiatric: Positive for: Alert, Oriented x 3, Normal Insight, Normal Concentration - Medications Active Medications: Active Medications Generic Name Dose Route Start Last Admin Trade Name Freq PRN Reason Stop Dose Admin Albuterol/Ipratropium 3 ml 07/19/18 13:16 Duoneb 3 Mg/0.5 Mg (3 Ml) Ud IH [id number] PRN Shortness of Breath Alprazolam 0.5 mg 07/20/18 00:50 07/20/18 01:04 Xanax PO 0.5 mg BID PRN Administration Anxiety Protocol Apixaban 10 mg 07/21/18 18:00 Eliquis PO BID TIFFANY Protocol Aspirin 81 mg 07/20/18 10:00 07/21/18 09:54 Aspirin Chewable PO 81 mg DAILY TIFFANY Administration Atorvastatin Calcium 10 mg 07/20/18 17:00 07/20/18 17:19 Lipitor PO 10 mg DIN TIFFANY Administration Ceftriaxone Sodium 1 gm in 100 mls @ 100 mls/hr 07/19/18 13:30 07/21/18 09:55 Rocephin 1 Gram Ivpb IVPB 100 mls/hr DAILY [facility] Administration Protocol Ibuprofen 600 mg 07/20/18 00:49 07/20/18 01:04 Motrin Tab PO 600 mg Q6H PRN Administration Pain, moderate (4-7) Levothyroxine Sodium 150 mcg 07/21/18 06:00 07/21/18 07:54 Synthroid PO 150 mcg 0600 TIFFANY Administration Lisinopril 20 mg 07/20/18 10:00 07/21/18 09:55 Zestril PO 20 mg DAILY TIFFANY Administration Metoprolol Tartrate 50 mg 07/20/18 10:00 07/21/18 09:54 Lopressor PO 50 mg BID TIFFANY Administration Ondansetron HCl 4 mg 07/19/18 13:09 Zofran Tab PO Q8H PRN Nausea/Vomiting Pantoprazole Sodium 20 mg 07/20/18 06:00 07/21/18 06:00 Protonix Ec Tab PO 20 mg 0600 TIFFANY Administration - Patient Studies Lab Studies: Microbiology Studies 07/19/18 12:30 MRSA Culture (Admit) - Final Naris MRSA NOT DETECTED Lab Studies 07/21/18 07/21/18 07/21/18 Range/Units 06:18 06:18 06:18 WBC 8.9 (4.5-11.0) 10^3/ul RBC 4.52 (3.5-6.1) 10^6/uL Hgb 15.1 (14.0-18.0) g/dL Hct 45.0 (42.0-52.0) % MCV 99.6 (80.0-105.0) fl MCH 33.4 (25.0-35.0) pg MCHC 33.6 (31.0-37.0) g/dl RDW 12.7 (11.5-14.5) % Plt Count 168 (120.0-450.0) 10^3/uL MPV 11.1 H (7.0-11.0) fl Gran % 77.2 H (50.0-68.0) % Lymph % (Auto) 10.9 L (22.0-35.0) % [place] % (Auto) 10.5 H (1.0-6.0) % Eos % (Auto) 1.3 L (1.5-5.0) % Baso % (Auto) 0.1 (0.0-3.0) % Gran # 6.89 H (1.4-6.5) Lymph # (Auto) 1.0 L (1.2-3.4) [place] # (Auto) 0.9 H (0.1-0.6) Eos # (Auto) 0.1 (0.0-0.7) Baso # (Auto) 0.01 (0.0-2.0) K/mm3 APTT 68.7 H (25.1-36.5) Seconds Sodium 138 (132-148) mmol/L Potassium 4.0 (3.6-5.0) mmol/L Chloride 106 (98-107) mmol/L Carbon Dioxide 22 (21-33) mmol/L Anion Gap 14 (10-20) BUN 17 (7-21) mg/dL Creatinine 1.0 (0.8-1.5) mg/dl Est GFR ( Amer) > 60 Est GFR (Non-Af Amer) > 60 Random Glucose 115 H (70-110) mg/dL Calcium 9.7 (8.4-10.5) mg/dL Phosphorus 2.5 (2.5-4.5) mg/dL Magnesium 2.0 (1.7-2.2) mg/dL Total Bilirubin 0.9 (0.2-1.3) mg/dL AST 17 (17-59) U/L ALT 18 (7-56) U/L Alkaline Phosphatase 74 (38-126) U/L Total Protein 7.1 (5.8-8.3) g/dL Albumin 3.8 (3.0-4.8) g/dL Globulin 3.4 gm/dL Albumin/Globulin Ratio 1.1 (1.1-1.8) 07/20/18 Range/Units 18:02 WBC (4.5-11.0) 10^3/ul RBC (3.5-6.1) 10^6/uL Hgb (14.0-18.0) g/dL Hct (42.0-52.0) % MCV (80.0-105.0) fl MCH (25.0-35.0) pg MCHC (31.0-37.0) g/dl RDW (11.5-14.5) % Plt Count (120.0-450.0) 10^3/uL MPV (7.0-11.0) fl Gran % (50.0-68.0) % Lymph % (Auto) (22.0-35.0) % [place] % (Auto) (1.0-6.0) % Eos % (Auto) (1.5-5.0) % Baso % (Auto) (0.0-3.0) % Gran # (1.4-6.5) Lymph # (Auto) (1.2-3.4) [place] # (Auto) (0.1-0.6) Eos # (Auto) (0.0-0.7) Baso # (Auto) (0.0-2.0) K/mm3 APTT 62.7 H (25.1-36.5) Seconds Sodium (132-148) mmol/L Potassium (3.6-5.0) mmol/L Chloride (98-107) mmol/L Carbon Dioxide (21-33) mmol/L Anion Gap (10-20) BUN (7-21) mg/dL Creatinine (0.8-1.5) mg/dl Est GFR ( Amer) Est GFR (Non-Af Amer) Random Glucose (70-110) mg/dL Calcium (8.4-10.5) mg/dL Phosphorus (2.5-4.5) mg/dL Magnesium (1.7-2.2) mg/dL Total Bilirubin (0.2-1.3) mg/dL AST (17-59) U/L ALT (7-56) U/L Alkaline Phosphatase (38-126) U/L Total Protein (5.8-8.3) g/dL Albumin (3.0-4.8) g/dL Globulin gm/dL Albumin/Globulin Ratio (1.1-1.8) Laboratory Results - last 24 hr 07/20/18 07/21/18 07/21/18 18:02 06:18 06:18 WBC 8.9 RBC 4.52 Hgb 15.1 Hct 45.0 MCV 99.6 MCH 33.4 MCHC 33.6 RDW 12.7 Plt Count 168 MPV 11.1 H Gran % 77.2 H Lymph % (Auto) 10.9 L [place] % (Auto) 10.5 H Eos % (Auto) 1.3 L Baso % (Auto) 0.1 Gran # 6.89 H Lymph # (Auto) 1.0 L [place] # (Auto) 0.9 H Eos # (Auto) 0.1 Baso # (Auto) 0.01 APTT 62.7 H 68.7 H Sodium Potassium Chloride Carbon Dioxide Anion Gap BUN Creatinine Est GFR ( Amer) Est GFR (Non-Af Amer) Random Glucose Calcium Phosphorus Magnesium Total Bilirubin AST ALT Alkaline Phosphatase Total Protein Albumin Globulin Albumin/Globulin Ratio 07/21/18 06:18 WBC RBC Hgb Hct MCV MCH MCHC RDW Plt Count MPV Gran % Lymph % (Auto) [place] % (Auto) Eos % (Auto) Baso % (Auto) Gran # Lymph # (Auto) [place] # (Auto) Eos # (Auto) Baso # (Auto) APTT Sodium 138 Potassium 4.0 Chloride 106 Carbon Dioxide 22 Anion Gap 14 BUN 17 Creatinine 1.0 Est GFR ( Amer) > 60 Est GFR (Non-Af Amer) > 60 Random Glucose 115 H Calcium 9.7 Phosphorus 2.5 Magnesium 2.0 Total Bilirubin 0.9 AST 17 ALT 18 Alkaline Phosphatase 74 Total Protein 7.1 Albumin 3.8 Globulin 3.4 Albumin/Globulin Ratio 1.1 EKG/Cardiology Studies: Cardiology / EKG Studies 07/21/18 07:00 ELECTROCARDIOGRAM Routine Comment: Reason For Exam: acute PE Review of Systems - Review of Systems All systems: reviewed and no additional remarkable complaints except Review of Systems: As per [facility] Critical Care Progress Note - Nutrition Nutrition: Nutrition Category Date Time Status Heart Healthy Diet [DIET] Diets 07/20/18 Breakfast Active Assessment/Plan - Assessment and Plan (Free Text) Assessment: 77M w/ a PMH of HTN, HLD, CAD s/p stent, Multiple valve repair; presented to [facility] on 07/19 w/ a CC of diffuse chest pain worse w/ inspiration. Found to have PE on CTA PE as well as LLB pneumonia. Subsequently admitted to ICU for management of pulmonary embolism. Neuro: AAO3 No FND Reorient as necessary Pulm: Pneumonia - c/w Ceftriaxone Pulmonary Embolism - DC Heparin drip; Start Eliquis 10 BID Patient maintaining O2 Sat >95% on 2L O2 Patient does experience PICKARD Pulm Following appreciate recs Cardio: HTN C/w Lopressor 50BID, Lisinopril 20 QD CAD c/w ASA 81, Lipitor Maintain Map >65 Maintain HD stable Cardio following appreciate reccs GI: PO IV Protonix 40 QD /Nephro: BUN/Cr 17:1 Good urine output No urinary complaints continue monitoring ID: Afebrile No leukocytosis Abx as above No MRSA Nares Dispo: Patient is stable at this time; no longer requiring ICU management or Monitoring; stable for transfer to med/surg Patient was seen, examined, discussed w/ attending Dr. Tad Ybarra DO PGY1 Internal Medicine Mold Preparer - Date & Time Date: 07/21/18 Time: 17:14 <Harris Mishra - Last Filed: 07/21/18 17:38> CCU Objective - Vital Signs / Intake & Output Vital Signs (Last 4 hours): Vital Signs Pulse Resp BP Pulse Ox 07/21/18 15:00 81 23 130/79 94 L 07/21/18 14:00 82 26 H 138/79 95 07/21/18 13:56 84 Intake and Output (Last 8hrs): Intake & Output 07/21/18 07/21/18 07/21/18 06:59 14:59 22:59 Intake Total 320 Output Total 600 Balance -280 Weight 101.605 kg Intake: IV 120 heparin 120 Oral 200 Output: Urine 600 Urine, Voided 600 Other: # Bowel Movements 0 - Medications Active Medications: Active Medications Generic Name Dose Route Start Last Admin Trade Name Freq PRN Reason Stop Dose Admin Albuterol/Ipratropium 3 ml 07/19/18 13:16 Duoneb 3 Mg/0.5 Mg (3 Ml) Ud IH [id number] PRN Shortness of Breath Alprazolam 0.5 mg 07/20/18 00:50 07/20/18 01:04 Xanax PO 0.5 mg BID PRN Administration Anxiety Protocol Apixaban 10 mg 07/21/18 18:00 Eliquis PO BID TIFFANY Protocol Aspirin 81 mg 07/20/18 10:00 07/21/18 09:54 Aspirin Chewable PO 81 mg DAILY TIFFANY Administration Atorvastatin Calcium 10 mg 07/20/18 17:00 07/20/18 17:19 Lipitor PO 10 mg DIN TIFFANY Administration Ceftriaxone Sodium 1 gm in 100 mls @ 100 mls/hr 07/19/18 13:30 07/21/18 09:55 Rocephin 1 Gram Ivpb IVPB 100 mls/hr DAILY TIFFANY Administration Protocol Ibuprofen 600 mg 07/20/18 00:49 07/20/18 01:04 Motrin Tab PO 600 mg Q6H PRN Administration Pain, moderate (4-7) Levothyroxine Sodium 150 mcg 07/21/18 06:00 07/21/18 07:54 Synthroid PO 150 mcg 0600 TIFFANY Administration Lisinopril 20 mg 07/20/18 10:00 07/21/18 09:55 Zestril PO 20 mg DAILY TIFFANY Administration Metoprolol Tartrate 50 mg 07/20/18 10:00 07/21/18 09:54 Lopressor PO 50 mg BID TIFFANY Administration Ondansetron HCl 4 mg 07/19/18 13:09 Zofran Tab PO Q8H PRN Nausea/Vomiting Pantoprazole Sodium 20 mg 07/20/18 06:00 07/21/18 06:00 Protonix Ec Tab PO 20 mg 0600 TIFFANY Administration - Patient Studies Lab Studies: Microbiology Studies 07/19/18 12:30 MRSA Culture (Admit) - Final Naris MRSA NOT DETECTED Lab Studies 07/21/18 07/21/18 07/21/18 Range/Units 06:18 06:18 06:18 WBC 8.9 (4.5-11.0) 10^3/ul RBC 4.52 (3.5-6.1) 10^6/uL Hgb 15.1 (14.0-18.0) g/dL Hct 45.0 (42.0-52.0) % MCV 99.6 (80.0-105.0) fl MCH 33.4 (25.0-35.0) pg MCHC 33.6 (31.0-37.0) g/dl RDW 12.7 (11.5-14.5) % Plt Count 168 (120.0-450.0) 10^3/uL MPV 11.1 H (7.0-11.0) fl Gran % 77.2 H (50.0-68.0) % Lymph % (Auto) 10.9 L (22.0-35.0) % [place] % (Auto) 10.5 H (1.0-6.0) % Eos % (Auto) 1.3 L (1.5-5.0) % Baso % (Auto) 0.1 (0.0-3.0) % Gran # 6.89 H (1.4-6.5) Lymph # (Auto) 1.0 L (1.2-3.4) [place] # (Auto) 0.9 H (0.1-0.6) Eos # (Auto) 0.1 (0.0-0.7) Baso # (Auto) 0.01 (0.0-2.0) K/mm3 APTT 68.7 H (25.1-36.5) Seconds Sodium 138 (132-148) mmol/L Potassium 4.0 (3.6-5.0) mmol/L Chloride 106 (98-107) mmol/L Carbon Dioxide 22 (21-33) mmol/L Anion Gap 14 (10-20) BUN 17 (7-21) mg/dL Creatinine 1.0 (0.8-1.5) mg/dl Est GFR ( Amer) > 60 Est GFR (Non-Af Amer) > 60 Random Glucose 115 H (70-110) mg/dL Calcium 9.7 (8.4-10.5) mg/dL Phosphorus 2.5 (2.5-4.5) mg/dL Magnesium 2.0 (1.7-2.2) mg/dL Total Bilirubin 0.9 (0.2-1.3) mg/dL AST 17 (17-59) U/L ALT 18 (7-56) U/L Alkaline Phosphatase 74 (38-126) U/L Total Protein 7.1 (5.8-8.3) g/dL Albumin 3.8 (3.0-4.8) g/dL Globulin 3.4 gm/dL Albumin/Globulin Ratio 1.1 (1.1-1.8) 07/20/18 Range/Units 18:02 WBC (4.5-11.0) 10^3/ul RBC (3.5-6.1) 10^6/uL Hgb (14.0-18.0) g/dL Hct (42.0-52.0) % MCV (80.0-105.0) fl MCH (25.0-35.0) pg MCHC (31.0-37.0) g/dl RDW (11.5-14.5) % Plt Count (120.0-450.0) 10^3/uL MPV (7.0-11.0) fl Gran % (50.0-68.0) % Lymph % (Auto) (22.0-35.0) % [place] % (Auto) (1.0-6.0) % Eos % (Auto) (1.5-5.0) % Baso % (Auto) (0.0-3.0) % Gran # (1.4-6.5) Lymph # (Auto) (1.2-3.4) [place] # (Auto) (0.1-0.6) Eos # (Auto) (0.0-0.7) Baso # (Auto) (0.0-2.0) K/mm3 APTT 62.7 H (25.1-36.5) Seconds Sodium (132-148) mmol/L Potassium (3.6-5.0) mmol/L Chloride (98-107) mmol/L Carbon Dioxide (21-33) mmol/L Anion Gap (10-20) BUN (7-21) mg/dL Creatinine (0.8-1.5) mg/dl Est GFR ( Amer) Est GFR (Non-Af Amer) Random Glucose (70-110) mg/dL Calcium (8.4-10.5) mg/dL Phosphorus (2.5-4.5) mg/dL Magnesium (1.7-2.2) mg/dL Total Bilirubin (0.2-1.3) mg/dL AST (17-59) U/L ALT (7-56) U/L Alkaline Phosphatase (38-126) U/L Total Protein (5.8-8.3) g/dL Albumin (3.0-4.8) g/dL Globulin gm/dL Albumin/Globulin Ratio (1.1-1.8) Laboratory Results - last 24 hr 07/20/18 07/21/18 07/21/18 18:02 06:18 06:18 WBC 8.9 RBC 4.52 Hgb 15.1 Hct 45.0 MCV 99.6 MCH 33.4 MCHC 33.6 RDW 12.7 Plt Count 168 MPV 11.1 H Gran % 77.2 H Lymph % (Auto) 10.9 L [place] % (Auto) 10.5 H Eos % (Auto) 1.3 L Baso % (Auto) 0.1 Gran # 6.89 H Lymph # (Auto) 1.0 L [place] # (Auto) 0.9 H Eos # (Auto) 0.1 Baso # (Auto) 0.01 APTT 62.7 H 68.7 H Sodium Potassium Chloride Carbon Dioxide Anion Gap BUN Creatinine Est GFR ( Amer) Est GFR (Non-Af Amer) Random Glucose Calcium Phosphorus Magnesium Total Bilirubin AST ALT Alkaline Phosphatase Total Protein Albumin Globulin Albumin/Globulin Ratio 07/21/18 06:18 WBC RBC Hgb Hct MCV MCH MCHC RDW Plt Count MPV Gran % Lymph % (Auto) [place] % (Auto) Eos % (Auto) Baso % (Auto) Gran # Lymph # (Auto) [place] # (Auto) Eos # (Auto) Baso # (Auto) APTT Sodium 138 Potassium 4.0 Chloride 106 Carbon Dioxide 22 Anion Gap 14 BUN 17 Creatinine 1.0 Est GFR ( Amer) > 60 Est GFR (Non-Af Amer) > 60 Random Glucose 115 H Calcium 9.7 Phosphorus 2.5 Magnesium 2.0 Total Bilirubin 0.9 AST 17 ALT 18 Alkaline Phosphatase 74 Total Protein 7.1 Albumin 3.8 Globulin 3.4 Albumin/Globulin Ratio 1.1 EKG/Cardiology Studies: Cardiology / EKG Studies 07/21/18 07:00 ELECTROCARDIOGRAM Routine Comment: Reason For Exam: acute PE Critical Care Progress Note - Nutrition Nutrition: Nutrition Category Date Time Status Heart Healthy Diet [DIET] Diets 07/20/18 Breakfast Active Addendum Addendum: 07/21/18 17:37 ICU Attending Addendum: Patient seen and examined. Case reviewed on round with housestaff. Agree with resident note above with the following additions/exceptions: 77M w/ a PMH of HTN, HLD, CAD s/p stent, Multiple valve repair admitted with diffuse chest pain PE on CTA chest being managed with heparin. Etiology unclear follow up with 2D-echo and if neg, GO looking at his mitral valve as a right sided clot would shower off PE. Cardio on board. Pulm on board for PE, switching heparin to eliquis today. Stable for transfer out of ICU. rest of care above Harris Mishra MD Scorekeeper
[2018-07-22] MEDS: Pantoprazole 20 mg EC Tab PO SCH (06:27)
[2018-07-22] MEDS: Levothyroxine 150 MCG TAB PO SCH (06:27)
--- NOTE | 2018-07-22 07:45 | CP.PCM.PN ---
Subjective - Date & Time of Evaluation Date of Evaluation: 07/22/18 Time of Evaluation: 07:00 - Subjective Subjective: Stable on 5R now. He feels OK. No CP or SOB. V/S noted. RSR. PE: Lungs: clear Cor.: S1S2 Abd.: soft Ext.: no edema Neuro.: alert I/O= 1782/750 Labs 07/21 noted. Lower Ext. Ramirez Dopplers: No DVT Echo: Good LV fx. NL RV, etc. See report Objective - Vital Signs/Intake and Output Vital Signs (last 24 hours): Temp Pulse Resp BP Pulse Ox 98.1 F 70 18 135/82 96 07/21/18 22:55 07/21/18 22:55 07/21/18 22:55 07/21/18 22:55 07/21/18 22:55 Intake and Output: 07/22/18 07/22/18 06:59 18:59 Intake Total 240 Balance 240 - Medications Medications: Current Medications Albuterol/Ipratropium (Duoneb 3 Mg/0.5 Mg (3 Ml) Ud) 3 ml IH [id number] PRN PRN Reason: Shortness of Breath Alprazolam (Xanax) 0.5 mg PO BID PRN; Protocol PRN Reason: Anxiety Last Admin: 07/21/18 17:52 Dose: 0.5 mg Apixaban (Eliquis) 10 mg PO BID [facility]; Protocol Last Admin: 07/21/18 17:49 Dose: 10 mg Aspirin (Aspirin Chewable) 81 mg PO DAILY [facility] Last Admin: 07/21/18 09:54 Dose: 81 mg Atorvastatin Calcium (Lipitor) 10 mg PO DIN [facility] Last Admin: 07/21/18 17:49 Dose: 10 mg Ceftriaxone Sodium (Rocephin 1 Gram Ivpb) 1 gm in 100 mls @ 100 mls/hr IVPB DAILY [facility]; Protocol Last Admin: 07/21/18 09:55 Dose: 100 mls/hr Ibuprofen (Motrin Tab) 600 mg PO Q6H PRN PRN Reason: Pain, moderate (4-7) Last Admin: 07/20/18 01:04 Dose: 600 mg Levothyroxine Sodium (Synthroid) 150 mcg PO 0600 [facility] Last Admin: 07/22/18 06:27 Dose: 150 mcg Lisinopril (Zestril) 20 mg PO DAILY [facility] Last Admin: 07/21/18 09:55 Dose: 20 mg Metoprolol Tartrate (Lopressor) 50 mg PO BID [facility] Last Admin: 07/21/18 17:49 Dose: 50 mg Ondansetron HCl (Zofran Tab) 4 mg PO Q8H PRN PRN Reason: Nausea/Vomiting Pantoprazole Sodium (Protonix Ec Tab) 20 mg PO 0600 [facility] Last Admin: 07/22/18 06:27 Dose: 20 mg - Labs Labs: 07/21/18 06:18 07/21/18 06:18 PT 12.9 SECONDS (9.4-12.5) H 07/20/18 05:00 INR 1.12 07/20/18 05:00 APTT 68.7 Seconds (25.1-36.5) H 07/21/18 06:18 Assessment and Plan - Assessment and Plan (Free Text) Assessment: Acute Chest and Back Pain Acute PEs CAD/MD/Remote PCI S/P repair ascending aortic aneurysm with AVR and MV repair. HBP HLD Hypothyroidism, s/p thyroidectomy for cancer Former Smoker Plan: Jackson MITCHELL ad mable. PT
--- NOTE | 2018-07-22 07:56 | PN ---
DATE: 07/22/2018 PULMONARY NOTE SUBJECTIVE: The patient appears comfortable this morning. He is not short of breath at rest. PHYSICAL EXAMINATION: VITAL SIGNS: (last noted in the computer): Temperature is 98.1, pulse is 70, respirations 18, blood pressure 135/82. Oxygen saturation on nasal cannula is 96%. HEENT: Normocephalic, atraumatic. No JVD. CARDIOVASCULAR: Systolic ejection murmur at the lower left sternal border. No S3 gallop. LUNGS: Clear bilaterally. EXTREMITIES: Mild edema is noted in both legs. There is no cyanosis or clubbing. Calves are nontender to palpation. GI: Abdomen is soft, nontender and nondistended. Bowel sounds are positive. SKIN: No acute rash. NEUROLOGIC: Limited at the present time. IMPRESSION: 1. Bilateral pulmonary emboli. 2. Shortness of breath, chest pain - resolved. 3. Coronary artery disease. 4. Valvular heart disease. PLAN: The patient appears very comfortable this morning. He is not short of breath at rest. He has no chest pain. He does state to feeling much, much better overall. I did discuss the case with the night nurse at length. The night nurse stated that the patient had a very good night. On physical exam, the patient's lungs are clear. In addition, the oxygen saturation on nasal cannula is 96%. I will continue with the nebulizer treatments on a p.r.n. basis. The patient has been transitioned to Eliquis therapy - for his pulmonary embolism. Repeat a.m. labs are pending. Input by Cardiology is also noted. Clinical status of the patient is significantly improved overall. I will discuss the above with the attending physician. Bruno Tate MD JAUN
[2018-07-22 07:59] LABS: BASO # 0.02 K/mm3 (0.0-2.0); BASO % 0.3 % (0.0-3.0); EOS # 0.2 (0.0-0.7); EOS % 2.6 % (1.5-5.0); GRAN # 5.12 (1.4-6.5); GRAN % 74.9 % (50.0-68.0); HEMOGLOBIN 14.7 g/dL (14.0-18.0); LYMPH # 0.8 (1.2-3.4); LYMPH % 12.2 % (22.0-35.0); MEAN CELL VOLUME 100.7 fl (80.0-105.0); MEAN CORPUSCULAR HEMOGLOBIN 33.3 pg (25.0-35.0); MEAN CORPUSCULAR HGB CONC 33.1 g/dl (31.0-37.0); MEAN PLATELET VOLUME 10.6 fl (7.0-11.0); MONO # 0.7 (0.1-0.6); RBC 4.41 10^6/uL (3.5-6.1); RED CELL DISTRIBUTION WIDTH 12.6 % (11.5-14.5); WHITE BLOOD COUNT 6.8 10^3/ul (4.5-11.0)
[2018-07-22 08:07] LABS: ALB/GLOB RATIO 1.1 (1.1-1.8); ALBUMIN 3.6 g/dL (3.0-4.8); ALT/SGPT 18 U/L (7-56); AST/SGOT 18 U/L (17-59); BLOOD UREA NITROGEN 16 mg/dL (7-21); CALCIUM 10.1 mg/dL (8.4-10.5); GFR NON-AFRICAN AMERICAN > 60
--- NOTE | 2018-07-22 08:07 | CARD ---
APPROVED REPORT Date of service: 07/21/2018 EXAM: Two-dimensional and M-mode echocardiogram with Doppler and color Doppler. Other Information Quality : FairRhythm : INDICATION ACUTE PE, S/P aortic root repair, AVR, MV repair 2D DIMENSIONS IVSd1.2 (0.7-1.1cm)LVDd4.3 (3.9-5.9cm) PWd1.2 (0.7-1.1cm)LVDs3.1 (2.5-4.0cm) FS (%) 23.3 %LVEF (%)55.0 (>50%) M-Mode DIMENSIONS Left Atrium (MM)4.20 (2.5-4.0cm)Aortic Root3.40 (2.2-3.7cm) Aortic Cusp Exc.2.10 (1.5-2.0cm) Aortic Valve AoV Peak Bwirqccn641.0cm/sAoV VTI40.3cmAO Peak GR.21mmHg LVOT Peak Yxudqyoy674.0cm/sLVOT VTI30.40cmAO Mean GR.13mmHg Mitral Valve MV E Renbhmnb79.4cm/sMV A Fmjujbtl476.0cm/sE/A ratio0.6 TDI Lateral E' Peak V5.75cm/sMedial E' Peak V4.97cm/sE/Lateral E'17.3 E/Medial E'20.0 Tricuspid Valve TR Peak Lanlyxza029em/sRAP ESEUFKEO78lnDiWW Peak Gr.31mmHg [id number] LEFT VENTRICLE The left ventricle is normal size. There is normal left ventricular wall thickness. The left ventricular function is normal. The left ventricular ejection fraction is within the normal range. There is normal LV segmental wall motion. RIGHT VENTRICLE The right ventricle is normal size. ATRIA The left atrium is mildly dilated. The right atrium size is normal. The interatrial septum is intact with no evidence for an atrial septal defect. AORTIC VALVE The prosthetic aortic valve is not well visualized. MITRAL VALVE Mitral annular calcification is moderate. Mitral regurgitation is trace. Intact MV repair TRICUSPID VALVE The tricuspid valve is normal in structure. There is trace tricuspid regurgitation. PULMONIC VALVE The pulmonic valve is not well visualized. GREAT VESSELS The aortic root is normal in size. PERICARDIAL EFFUSION There is no pericardial effusion. <Conclusion> The left ventricle is normal size. There is normal left ventricular wall thickness. The left ventricular function is normal. The prosthetic aortic valve is not well visualized. There is a physiological gradient recorded. Intact MV repair Mitral annular calcification is moderate. The right ventricle is normal size.
[2018-07-22] MEDS: Cefpodoxime (Vantin) 200 mg Tab PO SCH ×2 (09:33→21:11)
--- NOTE | 2018-07-23 02:41 | PN ---
DATE: 07/22/2018 DAILY PROGRESS NOTE SUBJECTIVE: The patient was seen this Saturday, in room 576, bed 2. Sitting at the bedside who is with his , who hospitalized in bed 1. He is out of bed in a chair. Awake, alert, clear, appropriate and in good spirits. PHYSICAL EXAMINATION: HEAD AND NECK: Unremarkable. LUNGS: Show good aeration right and left. There is no rales, rhonchi or wheezing. EXTREMITIES: Show no edema. IMPRESSION: 1. Pulmonary embolism. 2. Hypertension. 3. Status post aortic arch repair. 4. Primary hyperparathyroidism. 5. Osteoarthritis. PLAN: Patient has been switched to oral anticoagulants. If he is doing well through the course of today, he may be ready for discharge to home as early as tomorrow. I will follow up with him in the office later in the week, as we work on arrangements for his 's subacute rehab. Kodi Aguilera MD
[2018-07-23] MEDS: Pantoprazole 20 mg EC Tab PO SCH (05:56)
[2018-07-23] MEDS: Levothyroxine 150 MCG TAB PO SCH (05:56)
[2018-07-23 07:36] LABS: BASO # 0.02 K/mm3 (0.0-2.0); BASO % 0.2 % (0.0-3.0); EOS # 0.2 (0.0-0.7); EOS % 2.2 % (1.5-5.0); GRAN # 6.84 (1.4-6.5); GRAN % 74.8 % (50.0-68.0); HEMOGLOBIN 14.9 g/dL (14.0-18.0); LYMPH # 1.2 (1.2-3.4); LYMPH % 13.1 % (22.0-35.0); MEAN CELL VOLUME 99.8 fl (80.0-105.0); MEAN CORPUSCULAR HEMOGLOBIN 33.8 pg (25.0-35.0); MEAN CORPUSCULAR HGB CONC 33.9 g/dl (31.0-37.0); MEAN PLATELET VOLUME 10.8 fl (7.0-11.0); MONO # 0.9 (0.1-0.6); MONO % 9.7 % (1.0-6.0); RBC 4.41 10^6/uL (3.5-6.1); RED CELL DISTRIBUTION WIDTH 12.6 % (11.5-14.5); WHITE BLOOD COUNT 9.2 10^3/ul (4.5-11.0)
[2018-07-23 07:45] VITALS: RESP 20
[2018-07-23 07:55] LABS: ALB/GLOB RATIO 1.1 (1.1-1.8); ALBUMIN 3.9 g/dL (3.0-4.8); ALT/SGPT 24 U/L (7-56); AST/SGOT 24 U/L (17-59); BLOOD UREA NITROGEN 18 mg/dL (7-21); CALCIUM 10.1 mg/dL (8.4-10.5); GFR NON-AFRICAN AMERICAN > 60
--- NOTE | 2018-07-23 08:00 | PN ---
DATE: 07/23/2018 SUBJECTIVE: Patient is seen lying in bed on 5R. He is currently comfortable. He denies any chest pain or dyspnea. He did some ambulation yesterday. CURRENT MEDICATIONS: Include aspirin, DuoNeb inhaler, Eliquis 10 mg b.i.d., Lipitor 10 mg daily, metoprolol 50 mg b.i.d., Protonix, Synthroid, Vantin, Zestril. OBJECTIVE: GENERAL: He is an elderly man, appears comfortable at rest. VITAL SIGNS: His blood pressure is 120/80 with a pulse of 96, respirations are 16. Rhythm is regular. HEENT: No JVD. CHEST: A few scattered rhonchi. HEART: PMI displaced laterally with systolic murmur noted at the left sternal border. ABDOMEN: Soft, nontender. Normoactive bowel sounds. EXTREMITIES: No edema. DIAGNOSTIC DATA: Morning blood work is pending. Last hemoglobin and hematocrit 14.7 and 44.4. IMPRESSION: 1. Recent acute bilateral pulmonary emboli, clinically improved. 2. Coronary artery disease, status post prior myocardial infarction, remote percutaneous coronary intervention, stable at present. 3. Status post aortic valve replacement with mitral valve repair and aortic aneurysm repair, stable. 4. Hypertension. 5. Hyperlipidemia. RECOMMENDATIONS: Continue with anticoagulation as advised. As the cause of his pulmonary emboli is not clear, consideration should be given to a workup for hypercoagulability. From a cardiac standpoint, he appears stable for discharge home. His current medications will be continued. We will continue to follow him as needed as well as an outpatient. Tevin Horton MD MTDD
--- NOTE | 2018-07-23 08:24 | PN ---
DATE: 07/23/2018 PULMONARY NOTE SUBJECTIVE: The patient appears very comfortable this morning. He is not short of breath at rest. PHYSICAL EXAMINATION: VITAL SIGNS: Temperature is 98.2, pulse this morning is 88, respiratory rate 18, blood pressure 133/85. Oxygen saturation on room air is 95%. HEENT: Normocephalic, atraumatic. No JVD. CARDIOVASCULAR: Systolic ejection murmur at the lower left sternal border. No S3 gallop. LUNGS: Clear bilaterally. EXTREMITIES: Mild edema is noted in both legs. There is no cyanosis or clubbing. Calves are nontender to palpation. GI: Abdomen is soft, nontender and nondistended. Bowel sounds are positive. SKIN: No acute rash. NEUROLOGIC: Exam limited at the present time. IMPRESSION: 1. Bilateral pulmonary emboli. 2. Shortness of breath, chest pain - resolved. 3. Coronary artery disease. 4. Valvular heart disease. PLAN: The patient appears very comfortable this morning. He is not short of breath at rest. His chest pain has resolved. He states to feeling much, much better overall. He states "I feel fine". On physical exam, his lungs remain clear. In addition, the oxygen saturation on room air is now 95%. I will continue with the nebulizer treatments on a p.r.n. basis. The patient remains on Eliquis - for his pulmonary embolism. He remains hemodynamically stable with no significant alveolar-arterial gradient. Input by Cardiology is also noted. Clinical status of the patient is significantly improved overall. The patient is for discharge in the near future. The patient does have my card/information for a followup appointment-- as an outpatient. I will discuss the above with Dr. Aguilera. Bruno Tate MD JAUN
[2018-07-23] MEDS: Cefpodoxime (Vantin) 200 mg Tab PO SCH ×2 (10:39→21:32)
--- NOTE | 2018-07-23 12:30 | PN ---
DATE: 07/23/2018 DAILY PROGRESS NOTE SUBJECTIVE: The patient is a 77-year-old male with a past medical history positive for hypertension, hypothyroidism, coronary artery disease, status post stent placement, status post repair of an ascending aortic aneurysm with mitral regurgitation and aortic stenosis, status post thyroidectomy, who was admitted to the [facility] on 07/19/2018 with chest pain and shortness of breath and found to have bilateral pulmonary emboli. The patient was initially admitted to the Intensive Care Unit, treated with intravenous heparin. He was then changed to oral Eliquis. When seen today, he is on the fifth floor medical wing of the hospital and he is doing well. He was seen ambulating out of the bathroom after a.m. care. He voiced no complaints. He seemed strong. His respirations were easy. Lungs were clear on auscultation and percussion. Heart is regular. Abdomen is soft and nontender. The patient is in the room with his who is also a patient recuperating from bilateral pedal edema and inability to ambulate due to severe arthritis and ligament strains menisci tears in her knees. The patient's is doing well. We are continuing with his current medication. He is on Eliquis 10 mg p.o. b.i.d. We are considering possible discharge to home depending on the status of his . FINAL DIAGNOSES: 1. Bilateral pulmonary emboli. 2. Hypertension. 3. Hypothyroidism. 4. Coronary artery disease. 5. Mitral regurgitation. 6. Aortic stenosis. Markell Aguilera MD
[2018-07-23 23:23] VITALS: TEMP 98.4
[2018-07-24] MEDS: Pantoprazole 20 mg EC Tab PO SCH (05:58)
[2018-07-24] MEDS: Levothyroxine 150 MCG TAB PO SCH (05:58)
[2018-07-24 07:43] LABS: BASO # 0.01 K/mm3 (0.0-2.0); BASO % 0.2 % (0.0-3.0); EOS # 0.2 (0.0-0.7); EOS % 3.6 % (1.5-5.0); GRAN # 4.66 (1.4-6.5); GRAN % 70.1 % (50.0-68.0); HEMOGLOBIN 14.7 g/dL (14.0-18.0); LYMPH % 14.4 % (22.0-35.0); MEAN CELL VOLUME 98.9 fl (80.0-105.0); MEAN CORPUSCULAR HEMOGLOBIN 33.5 pg (25.0-35.0); MEAN CORPUSCULAR HGB CONC 33.9 g/dl (31.0-37.0); MEAN PLATELET VOLUME 10.7 fl (7.0-11.0); MONO # 0.8 (0.1-0.6); MONO % 11.7 % (1.0-6.0); RBC 4.39 10^6/uL (3.5-6.1); RED CELL DISTRIBUTION WIDTH 12.5 % (11.5-14.5); WHITE BLOOD COUNT 6.7 10^3/ul (4.5-11.0)
[2018-07-24 08:11] LABS: ALB/GLOB RATIO 1.2 (1.1-1.8); ALBUMIN 3.8 g/dL (3.0-4.8); ALT/SGPT 22 U/L (7-56); AST/SGOT 30 U/L (17-59); BLOOD UREA NITROGEN 19 mg/dL (7-21); CALCIUM 10.3 mg/dL (8.4-10.5); GFR NON-AFRICAN AMERICAN > 60
--- NOTE | 2018-07-24 08:13 | PN ---
DATE: 07/24/2018 PULMONARY NOTE SUBJECTIVE: The patient appears very comfortable this morning. He is not short of breath at rest. PHYSICAL EXAMINATION: VITAL SIGNS: (last noted in the computer): Temperature is 98.4, pulse 73, respirations 18/20, blood pressure 107/77. Oxygen saturation on room air is 97%. HEENT: Normocephalic, atraumatic. No JVD. CARDIOVASCULAR: Systolic ejection murmur at the lower left sternal border. No S3 gallop. LUNGS: Clear bilaterally. EXTREMITIES: Mild edema is noted in both lower extremities. There is no cyanosis or clubbing. Calves are nontender to palpation. GI: Abdomen is soft, nontender and nondistended. Bowel sounds are positive. SKIN: No acute rash. NEUROLOGIC: Limited at the present time. IMPRESSION: 1. Bilateral pulmonary emboli. 2. Shortness of breath, chest pain - resolved. 3. Coronary artery disease. 4. Valvular heart disease. PLAN: The patient appears very comfortable this morning. He is not short of breath at rest. He offers no pulmonary complaints at this point in time. He does state to feeling much, much better overall. On physical exam, his lungs remain clear. In addition, the oxygen saturation on room air is now 97%. I will continue with the nebulizer treatments on a p.r.n. basis. The patient also remains on Eliquis - for his pulmonary embolism. Inputs by Cardiology and Internal Medicine are also noted. The patient is significantly improved overall. He is for discharge in the near future. He does have my card/information for a followup appointment. I will discuss the above with the attending physician. Bruno Tate MD JAUN
[2018-07-24 08:20] VITALS: BP 129/80; PULSE 92; O2SAT 94
[2018-07-24] MEDS: Cefpodoxime (Vantin) 200 mg Tab PO SCH (10:16)
== END 2018-07-24 12:24 | disposition home or self-care (01) | DRG 175 ==
LOC: ED 06:51 → ERH 11:53 → ICU 12:32 → 5RSO 07-21 22:46
PROVIDERS: ADMIT Internal Medicine; ATTEND Internal Medicine
DX: I26.99 Other pulmonary embolism without acute cor pulmonale (principal); J18.9 Pneumonia, unspecified organism; J90 Pleural effusion, not elsewhere classified; E21.0 Primary hyperparathyroidism; E78.5 Hyperlipidemia, unspecified; E89.0 Postprocedural hypothyroidism; I08.0 Rheumatic disorders of both mitral and aortic valves; I10 Essential (primary) hypertension; I25.10 Atherosclerotic heart disease of native coronary artery without angina pectoris; I25.2 Old myocardial infarction; M19.90 Unspecified osteoarthritis, unspecified site; Z79.01 Long term (current) use of anticoagulants; Z80.3 Family history of malignant neoplasm of breast; Z85.850 Personal history of malignant neoplasm of thyroid; Z86.79 Personal history of other diseases of the circulatory system; Z95.2 Presence of prosthetic heart valve; Z87.891 Personal history of nicotine dependence; Z95.5 Presence of coronary angioplasty implant and graft